=== PATIENT | female | born 2000 | race Caucasian/White ===

== ENCOUNTER 2018-06-02 15:57 | Emergency (ER) | payer BC, OTHER ==
[~2018-06-02] VITALS: Ht 170.2 cm; Wt 47.6 kg
[~2018-06-02 15:57] MED LIST: AMXUD2505
[2018-06-02 16:04] VITALS: TEMP 37.1; Ht 170.2 cm; Wt 47.6 kg
[2018-06-02] MEDS ORDERED: LIDOCAINE 1% BUFFERED INJ 5 ML VIAL ONE (16:17)
[2018-06-02] MEDS ORDERED: CEFTRIAXONE SOD INJ 1 GM ADDVIAL IV STA (16:54)
[2018-06-02] MEDS ORDERED: DIPHTHERIA/TETANUS/PERTUSSIS 0.5 ML SYR/VIAL IM. ONE (17:00)
[2018-06-02] MEDS ORDERED: CEPH500C PO (17:01)
[2018-06-02] MEDS ORDERED: OXYC-90 PO (17:01)
[2018-06-02] MEDS ORDERED: SULF800T23 PO (17:01)
[2018-06-02 17:43] VITALS: BP 117/60; PULSE 77; O2SAT 99
[2018-06-02] MEDS ORDERED: OXYCODONE HCL IR 5 MG TAB (IMMEDIATE RELEASE) PO STA (17:59)
--- NOTE | 2018-06-02 19:06 | EMERGENCY ROOM VISIT NOTE ---
History First contact with patient: 16:07 Chief Complaint: BURN (MINOR) Stated Complaint: LEFT THUMB BURN History of Present Illness The patient is a 18 year old female who presents to the Emergency Room with complaints of a left thumb infection. The patient reports that she burned her finger on firewood about 2 weeks ago. She reports that the thumb has continued to increase in size, and started to notice a white area with redness over the past 2 days. She reports that the pain is significantly worsening, rating her discomfort an 8 out of 10 on exam. She has not noticed any drainage from the thumb. The patient is left-hand dominant. Tetanus immunization is up-to-date. Review of Systems 10 system review was performed and was negative except for pertinent positives and negatives as indicated in history of present illness Past Medical/Surgical History Medical Problems: (1) Asthma Surgical Problems: (1) History of tonsillectomy Family History FH: diabetes mellitus FH: hypertension FH: seizures Social History Smoking Status: Current Every Day Smoker Alcohol Use: none Marital Status: single Housing Status: lives with family Occupation Status: unemployed Current/Historical Medications Scheduled Cephalexin Monohydrate (Keflex), 500 MG PO QID Sulfa/Trimethoprim (Bactrim Ds 800MG/160MG), 1 TAB PO BID Scheduled PRN Oxycodone Ir (Roxicodone Ir), 1 TAB PO Q4H PRN for Pain Physical Exam Vital Signs Date Time Temp Pulse Resp B/P (MAP) Pulse Ox O2 Delivery O2 Flow Rate FiO2 06/02/18 17:43 77 117/60 99 Room Air 06/02/18 16:04 37.1 125 20 99 Room Air Physical Exam CONSTITUTIONAL: Healthy and well nourished. Alert and oriented X 3 with positive affect. Patient appears in moderate severe discomfort. HEENT: Normocephalic, atraumatic. Pupils equal, round and reactive. NECK: Full active range of motion without discomfort. RESPIRATORY: Clear to auscultation bilaterally with no wheezing, crackles, rhonchi or stridor. CARDIOVASCULAR: Regular rate and rhythm with no murmurs, rubs or gallops. MUSCULOSKELETAL: Examination of the left thumb show significant edema with an obvious underlying abscess. Nail plate is intact. Capillary refill is less than 2 seconds. The patient has no erythema proximal to the IP joint. INTEGUMENTARY: No rash or other significant dermatologic conditions noted. NEUROLOGIC: No focal neurologic deficits noted. Left thumb tip is hyperesthetic. Medical Decision & Procedures Medications Administered Medications (Trade) Dose Ordered Sig/Dwain Route Start Time Stop Time Status Last Admin Dose Admin Ceftriaxone Sodium (Rocephin Inj) 1 gm NOW STAT IV 06/02/18 16:54 06/02/18 16:56 DC 06/02/18 17:41 1 GM Diphtheria/ Pertussis/Tetanus Vacc (Adacel Inj) 0.5 ml ONCE ONCE IM. 06/02/18 17:00 06/02/18 17:01 DC 06/02/18 17:43 0.5 ML Oxycodone HCl (Roxicodone Immediate Rel Tab) 5 mg NOW STAT PO 06/02/18 17:59 06/02/18 18:01 DC 06/02/18 18:09 5 MG Procedure I&D procedure was performed under digital block anesthesia after receiving verbal consent from the patient. Using buffered 1% lidocaine without epinephrine, good digital block anesthesia was administered. The finger was then painted with iodine and allowed to dry. In sterile fashion, a 1 cm incision was made over the lateral fingertip. Copious purulent drainage was present. Cultures were collected. The wound was then further expressed then pressure irrigated with normal saline. 0.25 inch packing was then loosely placed within the wound, and covered with a bacitracin bulky dressing. The patient tolerated the procedure well. ED Course Patient history and physical exam were performed. Nurse's notes were reviewed. Vital signs were reviewed and were normal. I&D procedure was performed under digital block anesthesia. Patient was also administered IV Rocephin. The patient will be provided prescriptions for Keflex and Bactrim DS, along with OxyIR 5 mg. She was encouraged alternate ibuprofen and Tylenol for baseline pain relief. She was instructed to keep the overlying gauze dressing dry to help further promote drainage. She was instructed to return to the emergency department in 48 hours for packing removal, sooner with any progressively worsening redness, swelling, pain or fever. The patient was administered OxyIR 5 mg prior to discharge as she was waiting for her IV Rocephin to be completed. She rated her discomfort a 4 out of 10 at the time of discharge. Medical Decision [place] Drug Monitoring Program Search Results: patient reviewed within database, no issues identified Medication Reconcilliation Current Medication List: was personally reviewed by md Blood Pressure Screening Patient's blood pressure: Normal blood pressure Impression Primary Impression: Abscess of left thumb Departure Information Dispostion Home / Self-Care Prescriptions Oxycodone Ir (Roxicodone Ir) 5 Mg Tab 1 TAB PO Q4H Y for Pain, #15 TAB For Initial Treatment Prov: Shaggy Browning PA 06/02/18 Sulfa/Trimethoprim (Bactrim Ds 800MG/160MG) Tab 1 TAB PO BID for 7 Days, #14 TAB Prov: Shaggy Browning PA 06/02/18 Cephalexin Monohydrate (Keflex) 500 Mg Cap 500 MG PO QID for 7 Days, #28 CAP Prov: Shaggy Browning PA 06/02/18 Referrals No Doctor, Assigned (PCP) Forms HOME CARE DOCUMENTATION FORM, IMPORTANT VISIT INFORMATION Patient Instructions My [facility] Additional Instructions Take Keflex and Bactrim DS antibiotics as prescribed. Ibuprofen 800 mg and/or Tylenol 1000 mg every 8 hours. You may also alternate these medications for more effective pain relief: Ibuprofen --4 HRS--> Tylenol --4 HRS--> ibuprofen --4 HRS--> Tylenol .... OxyIR if needed for worse pain. Return in 48 hours for wound recheck, sooner with any progressively worsening redness, swelling, pain, red streaks or fever. Shaggy will be working 11a-9p. Change gauze frequently to keep it dry in order to promote further drainage from the wound.
--- NOTE | 2018-06-03 18:37 | Pharmacy Progress Note ---
ED Pharmacist Culture FollowUp Date of Service: Jun 03, 2018. Preliminary wound culture resulted as staph aureus. Patient was discharged on kelfex and bactrim. Will await full susceptibilities to assess opportunities for de-escalation or need for change in therapy.
== END 2018-06-02 18:15 | disposition home or self-care (01) ==
LOC: C.EDB 15:58 → C.EDC 18:15
DX: L02.512 Cutaneous abscess of left hand (principal); J45.909 Unspecified asthma, uncomplicated; F17.200 Nicotine dependence, unspecified, uncomplicated; Z23 Encounter for immunization

== ENCOUNTER 2018-06-04 16:38 | Emergency (ER) | payer BC, OTHER ==
[~2018-06-04] VITALS: Ht 170.2 cm; Wt 48.7 kg
[~2018-06-04 16:38] MED LIST changes: +CEPH500C PO; +OXYC-90 PO; +SULF800T23 PO
[2018-06-04 17:15] VITALS: TEMP 36.8; Ht 170.2 cm; Wt 48.7 kg
[2018-06-04] MEDS ORDERED: OXYC-90 PO (17:42)
[2018-06-04] MEDS ORDERED: BACITRACIN OINT 15 GM TUBE EXT ONE (17:45)
[2018-06-04 18:11] VITALS: BP 92/50; PULSE 71; O2SAT 97
--- NOTE | 2018-06-04 20:01 | EMERGENCY ROOM VISIT NOTE ---
History First contact with patient: 17:17 Chief Complaint: OTHER COMPLAINT Stated Complaint: FOLLOW UP FOR LEFT THUMB ABCESS History of Present Illness The patient is a 18 year old female who presents to the Emergency Room for packing removal from the left thumb abscess that was drained by me 2 days ago. The patient reports improving redness, swelling and pain. She has been taking Keflex and Bactrim DS antibiotics as prescribed. She rates her discomfort a 2 out of 10. Review of Systems 6 system review was performed and was negative except for pertinent positives and negatives as indicated in history of present illness Past Medical/Surgical History Medical Problems: (1) Asthma Surgical Problems: (1) History of tonsillectomy Family History FH: diabetes mellitus FH: hypertension FH: seizures Social History Smoking Status: Former Smoker Alcohol Use: none Marital Status: single Housing Status: lives with family Occupation Status: unemployed Current/Historical Medications Scheduled Cephalexin Monohydrate (Keflex), 500 MG PO QID Sulfa/Trimethoprim (Bactrim Ds 800MG/160MG), 1 TAB PO BID Scheduled PRN Oxycodone Ir (Roxicodone Ir), 1 TAB PO Q4H PRN for Pain Oxycodone Ir (Roxicodone Ir), 1 TAB PO Q4H PRN for Pain Physical Exam Vital Signs Date Time Temp Pulse Resp B/P (MAP) Pulse Ox O2 Delivery O2 Flow Rate FiO2 06/04/18 18:11 71 92/50 97 06/04/18 17:15 36.8 86 18 118/73 94 Room Air Physical Exam MUSCULOSKELETAL: Examination of the left thumb shows a much improved infection with decreasing erythema and edema. No proximal lymphangitic streaking noted. The nail is intact. Capillary refill is less than 2 seconds. NEUROLOGIC: Fingertip is sensory intact. Medical Decision & Procedures Medications Administered Medications (Trade) Dose Ordered Sig/Dwain Route Start Time Stop Time Status Last Admin Dose Admin Bacitracin (Bacitracin Oint) 1 appln NOW ONCE EXT 06/04/18 17:45 06/04/18 17:46 DC 06/04/18 18:06 1 APPLN ED Course Patient history and physical exam were performed. Nurse's notes were reviewed. Patient is afebrile and normotensive. Review of culture results shows a methicillin susceptible staph aureus. Her antibiotic should provide adequate coverage for the infection. The packing was successfully removed, and a bacitracin dressing was applied. The patient was encouraged to keep the wound clean and covered with an antibiotic ointment. Ibuprofen and Tylenol for baseline pain relief. I did provide an additional WRITTEN prescription for OxyIR 5 mg should the patient run out of her current medications and need additional pain relief. I did encourage follow-up with PCP as needed for further wound management, returning to the emergency department for any signs of worsening infection or other concerning findings. The family was happy with plan of care, and the patient rates her pain a 2 out of 10 at the time of discharge. Medical Decision Medication Reconcilliation Current Medication List: was personally reviewed by me Blood Pressure Screening Patient's blood pressure: Normal blood pressure Impression Primary Impression: Abscess of left thumb Departure Information Dispostion Home / Self-Care Condition GOOD Prescriptions Oxycodone Ir (Roxicodone Ir) 5 Mg Tab 1 TAB PO Q4H Y for Pain, #10 TAB For Initial Treatment Prov: Shaggy Browning PA 06/04/18 Forms HOME CARE DOCUMENTATION FORM, IMPORTANT VISIT INFORMATION Patient Instructions My [facility] Additional Instructions Continue and complete all antibiotics as previously prescribed. Keep wound clean and covered with an antibiotic ointment and dressing until it heals. Ibuprofen 400 mg and/or Tylenol 500 mg every 8 hours. You may also alternate these medications for more effective pain relief: Ibuprofen --4 HRS--> Tylenol --4 HRS--> ibuprofen --4 HRS--> Tylenol .... OxyIR if needed for worse pain. Return to the emergency department for any signs of redeveloping or worsening infection. Follow-up with your family doctor as needed for further wound management.
== END 2018-06-04 18:11 | disposition home or self-care (01) ==
LOC: C.EDB 16:39 → C.EDD 18:11
DX: Z09 Encounter for follow-up examination after completed treatment for conditions other than malignant neoplasm (principal); L02.512 Cutaneous abscess of left hand; J45.909 Unspecified asthma, uncomplicated; Z83.3 Family history of diabetes mellitus; Z82.49 Family history of ischemic heart disease and other diseases of the circulatory system; Z82.0 Family history of epilepsy and other diseases of the nervous system; Z87.891 Personal history of nicotine dependence